=== PATIENT | female | born 1965 | race African-American/Black ===

== ENCOUNTER 2024-07-29 04:08 | Emergency (ER) | payer OTHER ==
[~2024-07-29] VITALS: Ht 162.6 cm; Wt 92.0 kg
[2024-07-29 04:15] VITALS: O2SAT 99
[2024-07-29 04:26] VITALS: BP 157/111; TEMP 98.3; O2SAT 98
[2024-07-29 08:32] VITALS: PULSE 92; RESP 18
[2024-07-29] MEDS: LIDOCAINE HCL 1% 20ML VIAL INFIL ONE (09:16)
[2024-07-29] MEDS ORDERED: CEPH500T MT (09:30)
[2024-07-29] MEDS ORDERED: KETO10TA2 MT (09:31)
== END 2024-07-29 10:07 | disposition home or self-care (01) ==
LOC: ER 04:34
DX: S62.522A Displaced fracture of distal phalanx of left thumb, initial encounter for closed fracture (principal); Z88.5 Allergy status to narcotic agent; Z98.890 Other specified postprocedural states; X58.XXXA Exposure to other specified factors, initial encounter; Y93.89 Activity, other specified; Y92.89 Other specified places as the place of occurrence of the external cause; Y99.8 Other external cause status
CPT/HCPCS: 73120; 11730; 99284; J3490; Z7610 ×2; 12001; 99283